=== PATIENT | female | born 1970 | race Caucasian/White ===

== ENCOUNTER → 2017-05-23 | Outpatient (CLI) | payer SELFPAY ==
[~2017-05-23] MED LIST: CIPRO DPS500 MG PO; ELMIRON100 MG PO; FLAGYL-DPS500 MG PO; NORCO 5-325 TA1 EACH PO; RESTORIL DPS30 MG PO; SODIUM CHLORIDE3 ML IV; TEMAZEPAM30 MG PO; XANAX DPS0.5 MG PO
== END | disposition home or self-care (01) ==
LOC: RAD.S 10:32
DX: N32.89 Other specified disorders of bladder (principal); N32.2 Vesical fistula, not elsewhere classified